=== PATIENT | female | born 1955 | race African-American/Black ===

== ENCOUNTER → 2017-01-07 | Outpatient (CLI) | payer BC ==
[~2017-01-07] MED LIST: AMBIEN PO; DIOVAN PO; GLUCOPHAGE500 MG PO; LEVOTHYROXINE137 MCG PO; LIPITOR40 MG PO; NORVASC10 MG PO; PERCOCET5/325 PO; SYNTHROID PO; XARELTO15 MG PO; XARELTO20 MG PO
--- NOTE | ~2017-01-07 | US85 ---
[facility] A Service of [facility] & [facility] / [facility] RADIOLOGY TEXT RESULTS PATIENT: ELIECER PROCTOR LOCATION: CNIV : 59 UNIT #: [id number] AGE: [address]: Sergio Ruelas MD SEX: F ORDER DR: [id number] [facility] [address] [place], [place] [address] [id number] O MR#: [id number] Acc #: [id number] NAME: ELIECER PROCTOR : 1955 SEX: F STUDY DATE/TIME: 01/07/2017 14:28 UNIT: CNIV ROOM: STUDY DESCRIPTION: [facility] or [facility] St[facility] Attending Physician: Sergio Ruelas M.D. Referring Physician: Sergio Ruelas M.D. Ordering Physician: Sergio Ruelas M.D. Primary Care Physician: Sergio Ruelas M.D. MEDICAL IMAGING REPORT This report is preliminary unless electronic signature is present EXAM Left lower extremity venous duplex 01/07/2017 HISTORY History of left lower extremity DVT. History of blood thinners. Left lower extremity vein x 2 weeks. FINDINGS There is phasic spontaneous flow with respiration seen over the left common femoral, deep femoral, femoral, popliteal, anterior tibial and posterior tibial, peroneal and saphenous veins. There is compressibility of the vein lumen of the aforementioned vessels. IMPRESSION 1. There is no evidence of a DVT of the left lower extremity on today's exam. Dictated by... Glenn Jenkins M.D. THIS IS AN ELECTRONICALLY VERIFIED REPORT Glenn Jenkins M.D. at 01/10/2017 1:41 PM SHABBIR/ann marie TD: 01/07/2017 20:29 JOB #: [id number] MEDICAL IMAGING REPORT Page 1 of 1 COPY
== END | disposition home or self-care (01) ==
LOC: CNIV 14:08
DX: I82.402 Acute embolism and thrombosis of unspecified deep veins of left lower extremity (principal)
CPT/HCPCS: 93971

== ENCOUNTER 2017-04-06 17:29 | Emergency (ER) | payer BC ==
[~2017-04-06] VITALS: Ht 170.2 cm; Wt 122.5 kg
--- NOTE | ~2017-04-06 | CR150 ---
[facility] A Service of [facility] & [facility] RADIOLOGY TEXT RESULTS PATIENT: ELIECER PROCTOR LOCATION: [place] : 59 UNIT #: [id number] AGE: [address]: Karin Tatum APRN SEX: F ORDER DR: [id number] [facility] [address] [place], [place] [address] [id number] E MR#: [id number] Acc #: [id number] NAME: ELIECER PROCTOR : 1955 SEX: F STUDY DATE/TIME: 04/06/2017 19:42 UNIT: [facility] ROOM: STUDY DESCRIPTION: CR Hip Min 2 Views Lt Attending Physician: Karin Tatum A.P.R.N. Ordering Physician: Ed Pablo Bridges M.D. Primary Care Physician: Sergio Ruelas M.D. MEDICAL IMAGING REPORT This report is preliminary unless electronic signature is present EXAM Pelvis and left hip 04/06 INDICATIONS Left hip pain for 2 weeks after a fall. TECHNIQUE AP pelvis was obtained in addition to a frog-leg left hip. COMPARISON 05/02/2014 FINDINGS There is mild osteoarthritis in both hips which is stable. No fracture or dislocation. No sacroiliac joint diastases. Calcification in the pelvis is presumably a fibroid. IMPRESSION Stable bilateral hip osteoarthritis. No acute fracture or malalignment. Dictated by... Jan Ahn Jr., M.D. THIS IS AN ELECTRONICALLY VERIFIED REPORT Jan Ahn Jr., M.D. at 04/06/2017 10:35 PM RLK/oli TD: 04/06/2017 22:16 JOB #: [id number] MEDICAL IMAGING REPORT Page 1 of 1 COPY
--- NOTE | ~2017-04-06 | CR181 ---
[facility] A Service of [facility] RADIOLOGY TEXT RESULTS PATIENT: ELIECER PROCTOR LOCATION: [facility] : 59 UNIT #: [id number] AGE: [address]: Karin Tatum APRN SEX: F ORDER DR: [id number] [facility] [address] [place], [place] [address] [id number] E MR#: [id number] Acc #: [id number] NAME: ELIECER PROCTOR : 1955 SEX: F STUDY DATE/TIME: 04/06/2017 19:46 UNIT: [facility]X ROOM: STUDY DESCRIPTION: CR Lumbar Spine 2 or 3 Views Attending Physician: Karin Tatum A.P.R.N. Ordering Physician: Ed Doctor [id number] [facility] Primary Care Physician: Sergio Ruelas M.D. MEDICAL IMAGING REPORT This report is preliminary unless electronic signature is present EXAM Lumbar spine 04/06 HISTORY Low back pain after a fall two weeks ago TECHNIQUE/COMPARISON Three views of the lumbar spine are compared with 08/08/2015 FINDINGS No fractures are identified. There is mild spondylolisthesis at L4-L5, which is stable. Degenerative disk disease noted at this level as well. There is facet arthropathy in the lower lumbar spine. Incidental note is made of an IVC filter. IMPRESSION No acute fractures. There is degenerative disease and spondylolisthesis and is unchanged. Dictated by... Jan Ahn Jr., M.D. THIS IS AN ELECTRONICALLY VERIFIED REPORT Jan Ahn Jr., M.D. at 04/06/2017 10:35 PM RLK/to TD: 04/06/2017 22:20 JOB #: [id number] MEDICAL IMAGING REPORT [facility] A Service of [facility] & [facility] / [facility] RADIOLOGY TEXT RESULTS PATIENT: ELIECER PROCTOR LOCATION: [facility] : 59 UNIT #: [id number] AGE: [address]: Karin Tatum APRN SEX: F ORDER DR: Page 1 of 1 COPY
== END 2017-04-06 20:18 | disposition home or self-care (01) ==
LOC: CED 17:29 → CFTX 17:29
DX: S76.012A Strain of muscle, fascia and tendon of left hip, initial encounter (principal); S39.012A Strain of muscle, fascia and tendon of lower back, initial encounter; M54.42 Lumbago with sciatica, left side; I10 Essential (primary) hypertension; E11.9 Type 2 diabetes mellitus without complications; Z86.718 Personal history of other venous thrombosis and embolism; Z86.711 Personal history of pulmonary embolism; Z87.891 Personal history of nicotine dependence; W01.0XXA Fall on same level from slipping, tripping and stumbling without subsequent striking against object, initial encounter; Y92.009 Unspecified place in unspecified non-institutional (private) residence as the place of occurrence of the external cause
CPT/HCPCS: 72100; 73502; 82947; 99283